=== PATIENT | female | born 1935 | race Caucasian/White ===

== ENCOUNTER 2016-07-19 06:08 | Inpatient (IN) | payer MEDICARE, OTHER ==
--- NOTE | ~2016-07-19 | CN ---
Consultation Report [place] [id number] [facility] [place]. [address] NAME: MYRIAM CARRASCO LEONARDO : 35 STATUS : ADM IN PAT#: [id number] AGE: 80 ADM/REG DATE : 07/19/16 MR#: [id number] REPORT SERV DATE: 07/26/16 DICTATED BY: YAEL ANGEL DATE: 07/26/16 REPORT STATUS : Draft TRANSCRIBED BY: MODL DATE: 07/26/16 CARDIOLOGY CONSULTATION DATE OF CONSULTATION: 07/19/2016 CHIEF COMPLAINT: Atrial fibrillation. HISTORY OF PRESENT ILLNESS: The patient is an 80-year-old female originally admitted from 06/27/2016 through 07/01/2016 for progressive weakness with a diagnosis of upper respiratory tract infection and acute kidney injury. Readmitted after reported apneic period and respiratory arrest. Found to be hypercapnic and respiratory failure. Intubated and admitted. The patient had negative troponins. She was subsequently diagnosed with a recurrent pneumonia. During the course of hospitalization, she developed atrial fibrillation with rapid ventricular rate. Consultation was requested for rate management. The patient is currently intubated, mechanically ventilated, and chemically sedated. Medical history is obtained from the medical records. PAST MEDICAL HISTORY: 1. Coronary artery disease - remote coronary artery bypass grafting. a. Coronary artery bypass grafting, 05/15/2009 with 5-vessel CABG: OTERO-LAD, SVG-diagonal, SVG-OM, sequential SVG to PDA and PLV. b. Catheterization, 12/18/2011 with occlusion of the saphenous vein graft to PDA. 2. COPD. 3. Hypertension. 4. Diabetes mellitus. 5. Obstructive sleep apnea. 6. History of deep venous thromboses. 7. Chronic kidney disease, stage 3. 8. Wmxm-kd-dngzeapf dementia. 9. Chronic pain syndrome. 10.Chronic anemia. 11.Hypothyroidism. 12.Recurrent urinary tract infections. 13.Peripheral neuropathy. SOCIAL HISTORY: Remote tobacco use. Reportedly stopped smoking approximately 10 years ago. No alcohol or illicit drug use. FAMILY HISTORY: Noncontributory. ALLERGIES: MORPHINE. Consultation Report [place] [id number] [facility] [place]. [address] NAME: MYRIAM CARRASCO LEONARDO : 35 STATUS : ADM IN PAT#: [id number] AGE: 80 ADM/REG DATE : 07/19/16 MR#: [id number] REPORT SERV DATE: 07/26/16 DICTATED BY: YAEL ANGEL DATE: 07/26/16 REPORT STATUS : Draft TRANSCRIBED BY: KENISHA DATE: 07/26/16 REVIEW OF SYSTEMS: Negative for all organ systems except per the history of present illness - per review of the medical record. PHYSICAL EXAMINATION: VITAL SIGNS: Pulse ranging from 96-106, blood pressure 125/53, weight 82 kg, saturating 94% on FiO2 of 45%. GENERAL: Elderly female intubated, mechanically ventilated, and chemically sedated. HEENT: Normal. NECK: Supple, no JVD or bruit, normal carotid upstroke bilaterally, no thyromegaly. LUNGS: Diffuse rhonchi in all lung melara. CARDIOLOGY: Irregularly irregular rhythm. ABDOMEN: Bowel sounds positive, soft, nontender, and nondistended. No masses or aortic bruits. No hepatosplenomegaly or hepatojugular reflux. EXTREMITIES: No edema. Normal pulses. No clubbing or cyanosis. SKIN: Warm and dry, no significant rash. NEUROLOGIC: Chemically sedated. LABORATORY DATA: EKG: Atrial fibrillation with rapid ventricular rate. IMPRESSION: 1. Acute onset of atrial fibrillation in the setting of pneumonia and respiratory failure. Rate management strategy at this time. The patient's anticoagulation is currently being held. At some point, she will need resumption of chronic anticoagulation for stroke prophylaxis. She is currently on intravenous amiodarone. We will use the same for rate management for now. 2. Respiratory failure - plan for anticoagulation if the patient is going to have prolonged intubation or following extubation. Thank you for the opportunity to see the patient in consultation. We will continue to follow the patient with you. CSL/KENISHA Candido Angel M.D. / [id number] CC: Victoriano York M.D.
--- NOTE | ~2016-07-19 | OP ---
Record Of Operation [facility] [address] [place]. [address] NAME: MYRIAM CARRASCO : 35 STATUS : ADM IN [facility]#: [id number] AGE: 80 ADM/REG DATE : 07/19/16 MR#: [id number] REPORT SERV DATE: 07/20/16 DICTATED BY: IBRAHIMA CARLISLE DATE: 07/20/16 REPORT STATUS : Draft TRANSCRIBED BY: MODL DATE: 07/20/16 DATE OF PROCEDURE: PREPROCEDURE DIAGNOSIS: Hypoxic respiratory failure and left lung atelectasis. POSTPROCEDURE DIAGNOSIS: Hypoxic respiratory failure and left lung atelectasis. DESCRIPTION OF PROCEDURE: An informed consent taken from the daughter by phone and with plans for elective intubation for airway protection and respiratory support so we can perform bronchoscopy. Consent was verbalized over the phone and signed by myself. Risks and benefits discussed. The patient was in MICU bed 5 during intubation procedure. The patient was taken off BiPAP and put on 100% Ambu bag and given 30 mg of etomidate IV for sedation. We bagged the patient, we got O2 saturation of 96%. Using a Mach 3 blade, placed a size 8 ET tube without difficulty. Got good mist with bagging and good color change with CO2 colorimetry. She has diminished breath sounds on the left which is expected given her left lung atelectasis. We will get a chest x-ray to confirm ET tube placement. No complications. CEP/KENISHA Ibrahima Carlisle DO / [id number] CC: Victoriano York M.D.
--- NOTE | ~2016-07-19 | OP ---
Record Of Operation [facility] [address] [place]. [address] NAME: MYRIAM CARRASCO : 35 STATUS : ADM IN PAT#: [id number] AGE: 80 ADM/REG DATE : 07/19/16 MR#: [id number] REPORT SERV DATE: 07/20/16 DICTATED BY: IBRAHIMA CARLISLE DATE: 07/20/16 REPORT STATUS : Draft TRANSCRIBED BY: MODL DATE: 07/20/16 DATE OF PROCEDURE: 07/20/2016 PREPROCEDURE DIAGNOSIS: Respiratory failure and left total lung atelectasis. POSTPROCEDURE DIAGNOSES: Respiratory failure and left total lung atelectasis. DESCRIPTION: Informed consent obtained from family verbally over the phone for elective intubation and bronchoscopy. Risks and benefits discussed, and all questions answered. The patient was in MICU bed 5 for procedure while the patient was intubated on mechanical ventilation getting IV propofol. Fiberoptic scope was inserted after timeout performed for procedure. Scope was inserted through the endotracheal tube while the patient was on mechanical ventilation with a tidal volume of 500, and FiO2 initially 50% which was later increased to 100% FiO2. High-pressure alarm occurred periodically throughout the procedure which caused me to remove the bronchoscope intermittently. I then inserted the scope through the endotracheal tube and was able to see the anthony. Immediately saw copious, thick, purulent secretions in the left mainstem bronchus completely obstructing the airway. The right mainstem was completely open. The trap was in place and suctioned back secretions from the left airway. We injected normal saline to be able to loosen up the secretions. We were able to successfully clear out all segments of the left lung to open them up. The left upper lobe did have some areas of hemorrhagic appearance, and we did inject some epinephrine into this area. There was not a lot of active bleeding, but due to the hemorrhagic nature, we did inject some epinephrine. We suctioned back all we could and sent the trap for culture for routine bacteria, as well as fungus and cytology. No significant blood loss occurred during the procedure. The right lung also was inspected and was free of any endobronchial lesion, mass, or irregularities and very minimal secretions on that side. All segments were open. There were no endobronchial lesions in the left lung either, but the left lung did show a lot of areas of inflammation and mucosal hyperemia. The scope was removed. The patient tolerated the procedure well. CEP/MODL Ibrahima Carlisle DO / [id number] CC: Victoriano York M.D.
--- NOTE | ~2016-07-19 | HP ---
History And Physical [place] [id number] [facility] [place]. [address] NAME: MYRIAM CARRASCO : 35 STATUS : ADM IN [facility]#: [id number] AGE: 80 ADM/REG DATE : 07/19/16 MR#: [id number] REPORT SERV DATE: 07/19/16 DICTATED BY: VICTORIANO YORK DATE: 07/19/16 REPORT STATUS : Draft TRANSCRIBED BY: MODL DATE: 07/19/16 DATE OF ADMISSION: 07/19/2016 CHIEF COMPLAINT: This is an 80-year-old female who presents from [facility] after a cardiorespiratory arrest. HISTORY OF PRESENT ILLNESS: During the night, she was found to be apneic and a Code was called and after CPR was done, she awakened and on arrival to the emergency department, was found to have respiratory acidosis which has continued even into the intensive care unit in spite of BiPAP. REVIEW OF SYSTEMS: The family was relating that she may have missed diuretics after being sent from [facility] to the alf, but they were on her orders after checking, in spite of this the family noticed that she had peripheral edema increasing for the past week at the facility. She has also had increasing weakness which had only temporarily improved after her first [facility] admission for several days up until 06/30/2016 when she was admitted to [facility]. She had no nausea, vomiting, diarrhea, cough, or fever. Just increasing weakness, occasional coughing in the last day or two before admission. Had some green phlegm with productive cough. She had been started on Zithromax and Omnicef at the alf and now arrives with possible aspiration pneumonia, nosocomial and likely aspiration related. PAST MEDICAL HISTORY: Includes ongoing nygx-fg-azrinvaj dementia, decreasing physical endurance, increasing weakness, COPD with a history of smoking until about 10 years ago, longstanding hypertension, coronary artery disease, chronic pain syndrome, gastroesophageal reflux disease, hypercholesterolemia, possible congestive heart failure, hypothyroidism. CURRENT MEDICATIONS: Include albuterol q.4 hours metered dose inhaler, alprazolam 0.5 mg one or two at bedtime and 0.5 mg daily p.r.n., aspirin 81 mg daily, Zithromax 250 mg daily, Symbicort 160/4.5 b.i.d. two puffs, Bumex 1 mg daily, Calmoseptine ointment p.r.n., Omnicef 300 mg b.i.d., vitamin D3 2000 units daily, vitamin B12 1 mg IM monthly, Flexeril 5 mg at bedtime, Colace 100 mg daily, Nexium 20 mg daily, Neurontin 300 mg b.i.d., Mucinex 1200 mg daily p.r.n., levothyroxine 25 mcg daily, Lidoderm topical patch #3 daily, Toprol-XL 50 mg daily, Nystatin powder p.r.n., Percocet 5/325 t.i.d., MiraLAX powder 1 daily, Phenergan 12.5 mg b.i.d. p.r.n., Seroquel 50 mg daily and 100 mg each afternoon, Zoloft 100 mg daily, Alger nasal spray two or three puffs p.r.n. ALLERGIES: INCLUDE DEPAKOTE, DOXYCYCLINE, CIPRO, OLANZAPINE, AND A SEVERE REACTION TO MORPHINE. CODE STATUS: Full code and this was reiterated with the family who said including the possibility of intubation and ventilator support that would be in line with her wishes at this point in time. FAMILY HISTORY: Noncontributory. History And Physical [address] [address] NAME: MYRIAM CARRASCO : 35 STATUS : ADM IN [facility]#: [id number] AGE: 80 ADM/REG DATE : 07/19/16 MR#: [id number] REPORT SERV DATE: 07/19/16 DICTATED BY: VICTORIANO YORK DATE: 07/19/16 REPORT STATUS : Draft TRANSCRIBED BY: KENISHA DATE: 07/19/16 SOCIAL HISTORY: She is , with grown children. Multiple grandchildren who are involved in her care and support. Quit smoking 10 years ago. No alcohol or tobacco issues currently. PHYSICAL EXAMINATION: VITAL SIGNS: BP 125/46, pulse 120 on admission, currently in the 80s, respirations 20, afebrile. GENERAL: She is drowsy, but arouses and answers yes and no questions fairly clearly. SKIN: Pale, warm and dry. HEAD/NECK: Cranial nerves grossly intact. BiPAP mask in place. Mucous membranes slightly dry. Neck supple. No mass. No JVD. CHEST: With fairly good breath sounds except diminished in the bases more so on the right. No active wheezing. HEART: Regular rate and rhythm. Weak pulses. No murmur. ABDOMEN: Obese, supple, nontender, nondistended. No palpable mass. AND RECTAL: Deferred. EXTREMITIES: Good passive range of motion in all extremities. 1+ ankle edema. NEUROLOGIC: Grossly intact to sensory and motor with no tremors or pathological reflexes noted. No palpable cervical or axillary lymph nodes. LABORATORY: WBC 9.1, H and H 9.5 and 32.5, platelets 173. Sodium 131, potassium 4.0, BUN 47, creatinine 1.71, glucose 190. Urine with 25 wbc's. INR 1.2. Calcium 8.4. Liver enzymes in normal range. Lactate 1.5. EKG shows normal sinus rhythm in the 90s with no acute changes. Chest x-ray shows chronic changes. Later in the emergency department, a rhythm strip did show atrial fibrillation at some point in time. IMPRESSION: 1. Respiratory arrest, cannot rule out cardiac arrest but no evidence of myocardial infarction at this time. 2. Recurrent pneumonia, likely aspiration related and nosocomial. Failed outpatient treatment. 3. Chronic obstructive pulmonary disease with history of tobacco. 4. Ongoing respiratory acidosis, possibly related to the pain that she complains of in her rib cage preventing her from taking deep breaths, possibly related to medications on board or her dementia. Continue BiPAP for now and consider intubation and ventilator support if needed. 5. Urinary tract infection. 6. Hypertension. 7. Coronary artery disease. 8. Hypothyroidism. PLAN: We will switch to vancomycin and cefepime for maximum coverage, consult box maker paperboard. Continue full code. Electrolyte protocol. Pain relief with low-dose IV Dilaudid if needed. We will change the location of her Lidoderm patch to her rib cage, specifically where she is having pain. We will use SCDs for DVT prophylaxis instead of anticoagulation due to potential bruising and pulmonary contusion. We will get a speech therapy consultation for evaluation of probable aspiration. Continue most of her home medications except with History And Physical [address] [address] NAME: MYRIAM CARRASCO LEONARDO : 35 STATUS : ADM IN [facility]#: [id number] AGE: 80 ADM/REG DATE : 07/19/16 MR#: [id number] REPORT SERV DATE: 07/19/16 DICTATED BY: VICTORIANO YORK DATE: 07/19/16 REPORT STATUS : Draft TRANSCRIBED BY: MODL DATE: 07/19/16 reduction in dose of benzodiazepine and antipsychotic and change the pain pill to p.r.n. only. Follow up on blood and sputum cultures and plan to return to [facility] for further therapy when stabilized. BP/KENISHA Victoriano York M.D. / [id number] CC: Victoriano York M.D.
--- NOTE | ~2016-07-19 | CN ---
Consultation Report [facility] [address] [facility] [place]. [address] NAME: MYRIAM CARRASCO : 35 STATUS : ADM IN [facility]#: [id number] AGE: 80 ADM/REG DATE : 07/19/16 MR#: [id number] REPORT SERV DATE: 07/19/16 DICTATED BY: BITA KELLY DATE: 07/19/16 REPORT STATUS : Draft TRANSCRIBED BY: MODL DATE: 07/19/16 CONSULT DATE OF CONSULTATION: REASON FOR CONSULT: Acute hypercapnic respiratory failure. CHIEF COMPLAINT: The patient states that she is having chest pain. HISTORY OF PRESENT ILLNESS: Ms. Carrasco is an 80-year-old female, who was brought to the hospital after a supposed arrest and was found to be in hypercapnic respiratory failure. She was on BiPAP therapy, but came off by the time I saw her in the unit. She is currently admitted by Dr. Toyin bello. Emergency room called and gave me the history. Attempted to obtain a history from the patient, the patient's main complaint is chest pain. She has heavy atherosclerosis of her aorta. She states that this was a sharp chest pain in her chest and radiating to her back. We obtained an EKG, which did not find any symptoms of ischemia. Due to the concern of an aortic dissection and/or aneurysm, we obtained a stat CT scan of the chest. We did not add contrast due to the fear of worsening kidney dysfunction with her known chronic kidney disease, as the pain was reproducible on examination; however, not ruled out that there may be an aneurysm. Otherwise, the patient does not have any complaints of shortness of breath; however, she has increased work of breathing. PAST MEDICAL HISTORY: Dementia, coronary artery disease status post bypass, aortic atherosclerosis, hypertension, osteoarthritis, reflux, diabetes, hypothyroidism, hyperlipidemia, peripheral neuropathy, COPD with sleep apnea, anemia, chronic pain, history of DVTs. MEDICATIONS: Please see the MAR. SOCIAL HISTORY: The patient currently lives at a long-term. Family is not currently at the bed side. She has a history of smoking however. FAMILY HISTORY: Per record, history of diabetes and hypertension. REVIEW OF SYSTEMS: Unable to obtain adequate review of systems than what was discussed, as her main complaint was just chest pain and murillo negative otherwise. PHYSICAL EXAMINATION: VITAL SIGNS: Afebrile, heart rate in the 80s, respiratory rate 20, on nasal cannula with an oxygen saturation of around 100%. Blood pressure currently around 105 systolic. GENERAL: The patient is in mild respiratory distress. She is talking, she is alert and oriented x2. HEENT: No JVD. Consultation Report [place] [id number] [place]. [address] NAME: MYRIAM CARRASCO : 35 STATUS : ADM IN PAT#: [id number] AGE: 80 ADM/REG DATE : 07/19/16 MR#: [id number] REPORT SERV DATE: 07/19/16 DICTATED BY: BITA KELLY DATE: 07/19/16 REPORT STATUS : Draft TRANSCRIBED BY: MODL DATE: 07/19/16 NECK: Supple. PULMONARY: Decreased breath sounds bilaterally, poor inspiratory effort. Anteriorly, there are decreased breath sounds on the left lateral wall. CARDIAC: Mild systolic murmur, regular rate however. ABDOMEN: Soft, nontender, nondistended. Positive bowel sounds. CHEST: The patient's chest pain is reproducible except the posterior chest pain is not reproducible. EXTREMITIES: No lower extremity edema. IMAGING: CT scan of the abdomen shows extensive atherosclerosis with mild edema around the pancreatic head. CT scan of the chest shows completely atelectatic left lung and infiltrates bilaterally with pleural effusions. Chest x-ray: Bilateral infiltrates. LABORATORY EXAMINATION: No white blood cell count. Hemoglobin 9.5, creatinine 1.71, BUN 47. BNP 424. ASSESSMENT: 1. Acute hypoxic respiratory failure. At this moment in time, this is hypoxic and hypercapnic. I have instructed respiratory to continue with the Dulera, albuterol nebulizer, chest PT, BiPAP therapy with Precedex as needed for agitation, chest x-ray in the morning, as if this patient does not reopen her left lung, she may be a candidate for bronchoscopy. Check ABG as needed. However, her mental status has significantly improved according to the staff. 2. Chest pain: Most likely secondary to chest compressions. EKG shows no signs of ischemia. Troponin is negative x2. 3. Chronic kidney disease. 4. Chronic anemia. 5. Pancreatic edema. At this moment in time, we will check a lipase. Thank you very much for this consultation. We will continue to follow along with you in the intensive care unit. CRITICAL CARE TIME: In addition to any procedures that may have occurred, critical care time is 33 minutes. HFQ/KENISHA Bita Kelly MD / [id number] Consultation Report [address] [place]. [address] NAME: LUNAMYRIAM PATTERSON : 35 STATUS : ADM IN PAT#: [id number] AGE: 80 ADM/REG DATE : 07/19/16 MR#: [id number] REPORT SERV DATE: 07/19/16 DICTATED BY: BITA KELLY DATE: 07/19/16 REPORT STATUS : Draft TRANSCRIBED BY: KENISHA DATE: 07/19/16 CC: Victoriano York M.D.
[2016-07-19 05:48] LABS: BASOPHILS 0.1 %; BASOPHILS ABSOLUTE 0.01 10/3/uL (0.0-0.16); EOSINOPHILS ABSOLUTE 0.18 10/3/uL (0.0-0.53); HEMATOCRIT 32.5 % (36.0-48.0); HEMOGLOBIN 9.5 g/dL (12.0-16.0); IMMATURE GRANULOCYTES 0.8 %; IMMATURE GRANULOCYTES ABSOLUTE 0.07 10/3/uL (0.0-0.11); LYMPHOCYTES 14.6 %; LYMPHOCYTES ABSOLUTE 1.32 10/3/uL (0.67-4.30); MEAN CORPUSCULAR HEMOGLOB 26.3 pg (26.0-34.0); MEAN PLATELET VOLUME 10.2 fL (9.2-13.0); MONOCYTES 7.6 %; MONOCYTES ABSOLUTE 0.69 10/3/uL (0.21-1.20); NEUTROPHILS 74.9 %; RBC DISTRIBUTION WIDTH 16.7 % (12.0-16.0); RED CELL COUNT 3.61 10/6/uL (4.0-5.6)
[2016-07-19 05:52] LABS: ER CBC TAT 0 Hrs 09 Mins; MANUAL DIFF NO %; MEAN CORPUS HGB CONC 29.2 g/dL (32.0-36.0); PLATELET COUNT 173 10/3/uL (150-400); WHITE BLOOD CELLS 9.1 10/3/uL (4.5-10.5)
[2016-07-19 05:58] LABS: INTERNATIONAL NORMAL RATI 1.2 UNITS (-); PARTIAL THROMBO TIME 31.8 SEC (22.5-37.2); PROTIME (NOT ORD) 15.4 SEC (12.0-14.5)
[2016-07-19 06:07] LABS: LACTATE 1.5 MMOL/L (0.3-2.4)
[~2016-07-19 06:08] MED LIST: ASAB PO; ASAEC PO; B121000P IM; BUM1 PO; CALMOSEPTINE O2.5 OZ TOP; CLARIT10 PO; CRESTOR10 PO; CRESTOR20 MG PO; CYANO1000T PO; DOK100 MG PO; DSS PO; ENDOCET1 TA1 PO; FISH OIL300 MG PO; FLAXSEED OIL1000 MG PO; FLEXERIL5 MG PO; GLUCPH PO; HALF81 PO; HEMATINIC PL PO; L40 PO; LEVOTHROID25 MCG PO; LEVOTHYROXIN25 MCG PO; LIDODERM T; LIDODERM TOP; LOFIBRA160 MG PO; LOP25 PO; METHOC750B PO; MIRALAXPKT PO; MUCINEX1200 MG PO; MULTIPLE VIT PO; NEUR100 PO; NEUR300 PO; NEXIUM20 M1 PO; NYSTOP100000 MG TOP; OCEAN NAS; OMNICEF300 PO; PCET PO; PERCOCET1 TA4 PO; PR12.5 PO; PR25 PO; PRIN2.5 PO; PROAIR HFA INH; REG5 PO; SEROQUEL1C PO; SEROQUEL50 MG PO; SUCR PO; SYMBICORT 160/41 INH INH; SYN.025B PO; TOPXL50 PO; VITAMIN D31000 UNIT PO; VITC500 PO; WOUND TOP; X5 PO; Z-PAK PO; ZANTAC300 MG PO; ZOL100 PO
[2016-07-19 06:10] LABS: A/G RATIO 0.6 (0.7-1.9); ACETAMINOPHEN LEVEL (TYLENOL) 4.5 MCG/ML (10.0-20.0); ALBUMIN 2.8 G/DL (3.5-5.0); ALCOHOL < 10 MG/DL (0); ALKALINE PHOSPHATASE 96 U/L (45-117); BUN (BLOOD UREA NITROGEN) 47 MG/DL (6-23); CALCIUM, SERUM 8.4 MG/DL (8.5-10.4); CHLORIDE, SERUM 98 MMOL/L (96-112); CO2 (CARBON DIOXIDE) 31 MMOL/L (24-34); CREATININE 1.71 MG/DL (0.55-1.02); GFR AFRICAN AMERICAN 32 ML/MIN (>=60); GFR NON AFRICAN AMERICAN 28 ML/MIN (>=60); GLOBULIN 4.4 G/DL (2.5-4.1); GLUCOSE, SERUM 190 MG/DL (60-99); POTASSIUM, SERUM 4.9 MMOL/L (3.5-5.3); SALICYLATE < 1.7 MG/DL (-); SGOT(AST) 18 U/L (5-40); SGPT(ALT) 20 U/L (5-65); SODIUM, SERUM 137 MMOL/L (135-148); TOTAL BILIRUBIN 0.5 MG/DL (0-1.2); TOTAL PROTEIN 7.2 G/DL (6.0-8.5); TROPONIN I <0.02 NG/ML (<0.05)
[2016-07-19 06:25] LABS: ASCORBIC ACID (UR NOT ORDER) NEG (NEG); BILIRUBIN, URINE NEGATIVE (NEG); ER URINALYSIS TAT 0 Hrs 00 Mins; KETONE, URINE NEGATIVE (NEG); LEUKOCYTE ESTERASE(NOT OR MOD (NEG); NITRITE (URINE) NEG (NEG); WBC (NOT ORDERED) (RFLEX) 25 (0-5)
[2016-07-19 07:20] LABS: AMPHETAMINES (NOT ORD) NEG (NEG); BARBITURATES (NOT ORDERED NEG (NEG); BENZODIAZEPINES (NOT ORD) NEG (NEG); CANNABINOIDS (THC) POS (NEG); COCAINE (NOT ORDERED) NEG (NEG); OPIATES POS (NEG); PHENCYCLIDINE(PCP) NEG (NEG); TRICYCLICS NEG (NEG)
[2016-07-19 10:07] LABS: BE (BASE EXCESS) 4.6 MEQ/L (0 +/- 2.5); BIPAP 18/6 cm.H2O; CARBOXYHEMOGLOBIN 0.9 % (0-3); HCO3 (ACTUAL BICARBONATE) 32.6 MEQ/L (23-27); HEMOBLOGIN CONTENT 9.5 G/DL (12-16); INSTRUMENT SERIAL # 8083; METHEMOGLOBIN 0.1 % (0-3); O2 CONTENT 12.7 VOL% (18-24); OPERATOR ID 14947; PCO2 (CO2 TENSION) 71 MMHG (35-45); PO2 (O2 TENSION) 79 MMHG (79-93); SAMPLE Arterial; pH 7.28 (7.37-7.43)
[2016-07-20 06:13] LABS: BUN (BLOOD UREA NITROGEN) 41 MG/DL (6-23); CALCIUM, SERUM 8.6 MG/DL (8.5-10.4); CHLORIDE, SERUM 102 MMOL/L (96-112); CO2 (CARBON DIOXIDE) 29 MMOL/L (24-34); CREATININE 1.36 MG/DL (0.55-1.02); GFR AFRICAN AMERICAN 42 ML/MIN (>=60); GFR NON AFRICAN AMERICAN 37 ML/MIN (>=60); GLUCOSE, SERUM 124 MG/DL (60-99); POTASSIUM, SERUM 4.6 MMOL/L (3.5-5.3); SODIUM, SERUM 141 MMOL/L (135-148)
[2016-07-20 09:18] LABS: BASOPHILS 0.2 %; BASOPHILS ABSOLUTE 0.01 10/3/uL (0.0-0.16); EOSINOPHILS 0.6 %; EOSINOPHILS ABSOLUTE 0.03 10/3/uL (0.0-0.53); IMMATURE GRANULOCYTES 0.6 %; IMMATURE GRANULOCYTES ABSOLUTE 0.03 10/3/uL (0.0-0.11); LYMPHOCYTES ABSOLUTE 0.48 10/3/uL (0.67-4.30); MANUAL DIFF NO %; MEAN CORPUS HGB CONC 30.8 g/dL (32.0-36.0); MEAN CORPUSCULAR HEMOGLOB 26.8 pg (26.0-34.0); MEAN CORPUSCULAR VOLUME 87.2 fL (80-100); MONOCYTES 10.5 %; MONOCYTES ABSOLUTE 0.56 10/3/uL (0.21-1.20); NEUTROPHILS 79.1 %; NEUTROPHILS ABSOLUTE 4.22 10/3/uL (2.02-8.40); PLATELET COUNT 111 10/3/uL (150-400); RBC DISTRIBUTION WIDTH 16.8 % (12.0-16.0); RED CELL COUNT 2.98 10/6/uL (4.0-5.6); WHITE BLOOD CELLS 5.3 10/3/uL (4.5-10.5)
[2016-07-20 12:45] LABS: ALLENS TEST Pos; BE (BASE EXCESS) 5.4 MEQ/L (0 +/- 2.5); CARBOXYHEMOGLOBIN 0.9 % (0-3); HCO3 (ACTUAL BICARBONATE) 31.9 MEQ/L (23-27); INSTRUMENT SERIAL # 8083; METHEMOGLOBIN 0.3 % (0-3); MODE A/C; O2 CONTENT 13.1 VOL% (18-24); PCO2 (CO2 TENSION) 59 MMHG (35-45); PO2 (O2 TENSION) 260 MMHG (79-93); SAMPLE Arterial; TIDAL VOLUME 450 ML; pH 7.35 (7.37-7.43)
[2016-07-20 17:46] LABS: BD FL LYMPH (NOT ORD) 1 %; BD FL SOURCE (NOT ORD) BAL; BF BASO (NOT OF) 0 %; BF LARGE MONONUCLEAR 0 %; BF TOTAL CELL CT (NOT ORD 4709 /MM3; BODY FLUID EOS (NOT ORD) 0 %; BODY FLUID RBC (NOT ORD) 79000 /MM3; BODY FLUID SEG (NOT ORD) 99 %
[2016-07-21 05:12] LABS: BASOPHILS 0.2 %; BASOPHILS ABSOLUTE 0.01 10/3/uL (0.0-0.16); EOSINOPHILS 1.1 %; EOSINOPHILS ABSOLUTE 0.05 10/3/uL (0.0-0.53); HEMOGLOBIN 8.7 g/dL (12.0-16.0); IMMATURE GRANULOCYTES 0.4 %; IMMATURE GRANULOCYTES ABSOLUTE 0.02 10/3/uL (0.0-0.11); LYMPHOCYTES 18.9 %; LYMPHOCYTES ABSOLUTE 0.89 10/3/uL (0.67-4.30); MEAN CORPUS HGB CONC 30.3 g/dL (32.0-36.0); MEAN CORPUSCULAR HEMOGLOB 26.7 pg (26.0-34.0); MEAN PLATELET VOLUME 11.1 fL (9.2-13.0); MONOCYTES 8.3 %; MONOCYTES ABSOLUTE 0.39 10/3/uL (0.21-1.20); NEUTROPHILS 71.1 %; NEUTROPHILS ABSOLUTE 3.36 10/3/uL (2.02-8.40); PLATELET COUNT 111 10/3/uL (150-400); RBC DISTRIBUTION WIDTH 16.6 % (12.0-16.0); RED CELL COUNT 3.26 10/6/uL (4.0-5.6); WHITE BLOOD CELLS 4.7 10/3/uL (4.5-10.5)
[2016-07-21 05:15] LABS: HEMATOCRIT 28.7 % (36.0-48.0); MANUAL DIFF NO %
[2016-07-21 05:28] LABS: BUN (BLOOD UREA NITROGEN) 38 MG/DL (6-23); CALCIUM, SERUM 8.5 MG/DL (8.5-10.4); CHLORIDE, SERUM 102 MMOL/L (96-112); CO2 (CARBON DIOXIDE) 29 MMOL/L (24-34); CREATININE 1.37 MG/DL (0.55-1.02); GFR AFRICAN AMERICAN 42 ML/MIN (>=60); GFR NON AFRICAN AMERICAN 36 ML/MIN (>=60); POTASSIUM, SERUM 4.5 MMOL/L (3.5-5.3); SODIUM, SERUM 141 MMOL/L (135-148)
[2016-07-21 05:39] LABS: GLUCOSE, SERUM 154 MG/DL (60-99); PHOSPHORUS, SERUM 2.4 MG/DL (2.5-4.5); ULTRASENSITIVE TSH 0.738 MCIU/ML (0.358-3.740)
[2016-07-22 05:19] LABS: BASOPHILS 0.4 %; BASOPHILS ABSOLUTE 0.04 10/3/uL (0.0-0.16); EOSINOPHILS 4.8 %; EOSINOPHILS ABSOLUTE 0.49 10/3/uL (0.0-0.53); HEMOGLOBIN 9.9 g/dL (12.0-16.0); IMMATURE GRANULOCYTES 1.3 %; IMMATURE GRANULOCYTES ABSOLUTE 0.13 10/3/uL (0.0-0.11); LYMPHOCYTES 22.4 %; LYMPHOCYTES ABSOLUTE 2.31 10/3/uL (0.67-4.30); MEAN CORPUS HGB CONC 30.9 g/dL (32.0-36.0); MEAN CORPUSCULAR HEMOGLOB 26.3 pg (26.0-34.0); MEAN PLATELET VOLUME 10.4 fL (9.2-13.0); MONOCYTES 8.4 %; MONOCYTES ABSOLUTE 0.87 10/3/uL (0.21-1.20); NEUTROPHILS 62.7 %; NEUTROPHILS ABSOLUTE 6.46 10/3/uL (2.02-8.40); RBC DISTRIBUTION WIDTH 17.1 % (12.0-16.0); RED CELL COUNT 3.77 10/6/uL (4.0-5.6)
[2016-07-22 05:21] LABS: MANUAL DIFF NO %; MEAN CORPUSCULAR VOLUME 84.9 fL (80-100); PLATELET COUNT 173 10/3/uL (150-400); WHITE BLOOD CELLS 10.3 10/3/uL (4.5-10.5)
[2016-07-22 05:27] LABS: INTERNATIONAL NORMAL RATI 1.3 UNITS (-); PARTIAL THROMBO TIME 35.5 SEC (22.5-37.2); PROTIME (NOT ORD) 16.2 SEC (12.0-14.5)
[2016-07-22 05:32] LABS: CHLORIDE, SERUM 100 MMOL/L (96-112); CO2 (CARBON DIOXIDE) 30 MMOL/L (24-34); CREATININE 1.27 MG/DL (0.55-1.02); GFR AFRICAN AMERICAN 46 ML/MIN (>=60); GFR NON AFRICAN AMERICAN 40 ML/MIN (>=60); GLUCOSE, SERUM 161 MG/DL (60-99); POTASSIUM, SERUM 3.6 MMOL/L (3.5-5.3); SODIUM, SERUM 139 MMOL/L (135-148)
[2016-07-22 05:39] LABS: BUN (BLOOD UREA NITROGEN) 29 MG/DL (6-23)
[2016-07-22 06:20] LABS: ANISOCYTOSIS 1+ (5-10/OIF) (0-5/OIF); PLATELET ESTIMATE ADQ (ADEQUATE); POLYCHROMASIA 1+ (2-5/OIF) (0-1/OIF)
[2016-07-22 19:13] LABS: POTASSIUM, SERUM 4.3 MMOL/L (3.5-5.3)
[2016-07-23 04:10] LABS: BASOPHILS 0.2 %; BASOPHILS ABSOLUTE 0.02 10/3/uL (0.0-0.16); EOSINOPHILS 0 %; HEMATOCRIT 32.7 % (36.0-48.0); HEMOGLOBIN 9.9 g/dL (12.0-16.0); IMMATURE GRANULOCYTES 0.9 %; IMMATURE GRANULOCYTES ABSOLUTE 0.11 10/3/uL (0.0-0.11); LYMPHOCYTES 4.6 %; LYMPHOCYTES ABSOLUTE 0.57 10/3/uL (0.67-4.30); MEAN CORPUS HGB CONC 30.3 g/dL (32.0-36.0); MEAN CORPUSCULAR HEMOGLOB 25.6 pg (26.0-34.0); MEAN CORPUSCULAR VOLUME 84.7 fL (80-100); MEAN PLATELET VOLUME 10.3 fL (9.2-13.0); MONOCYTES ABSOLUTE 0.12 10/3/uL (0.21-1.20); NEUTROPHILS 93.3 %; NEUTROPHILS ABSOLUTE 11.54 10/3/uL (2.02-8.40); PLATELET COUNT 182 10/3/uL (150-400); RBC DISTRIBUTION WIDTH 16.8 % (12.0-16.0); RED CELL COUNT 3.86 10/6/uL (4.0-5.6); WHITE BLOOD CELLS 12.4 10/3/uL (4.5-10.5)
[2016-07-23 04:16] LABS: MANUAL DIFF NO %
[2016-07-23 04:22] LABS: CALCIUM, SERUM 8.2 MG/DL (8.5-10.4); CHLORIDE, SERUM 100 MMOL/L (96-112); CO2 (CARBON DIOXIDE) 30 MMOL/L (24-34); CREATININE 1.24 MG/DL (0.55-1.02); GFR AFRICAN AMERICAN 48 ML/MIN (>=60); GFR NON AFRICAN AMERICAN 41 ML/MIN (>=60); PHOSPHORUS, SERUM 2.9 MG/DL (2.5-4.5); POTASSIUM, SERUM 3.9 MMOL/L (3.5-5.3); SODIUM, SERUM 139 MMOL/L (135-148)
[2016-07-23 04:23] LABS: BUN (BLOOD UREA NITROGEN) 25 MG/DL (6-23); GLUCOSE, SERUM 213 MG/DL (60-99)
[2016-07-24 04:07] LABS: BASOPHILS 0.1 %; BASOPHILS ABSOLUTE 0.01 10/3/uL (0.0-0.16); EOSINOPHILS 0.5 %; EOSINOPHILS ABSOLUTE 0.06 10/3/uL (0.0-0.53); HEMATOCRIT 32.1 % (36.0-48.0); HEMOGLOBIN 9.7 g/dL (12.0-16.0); IMMATURE GRANULOCYTES 0.7 %; IMMATURE GRANULOCYTES ABSOLUTE 0.08 10/3/uL (0.0-0.11); LYMPHOCYTES 13.9 %; LYMPHOCYTES ABSOLUTE 1.68 10/3/uL (0.67-4.30); MEAN CORPUS HGB CONC 30.2 g/dL (32.0-36.0); MEAN CORPUSCULAR HEMOGLOB 25.7 pg (26.0-34.0); MEAN CORPUSCULAR VOLUME 85.1 fL (80-100); MEAN PLATELET VOLUME 10.6 fL (9.2-13.0); MONOCYTES 7.2 %; MONOCYTES ABSOLUTE 0.87 10/3/uL (0.21-1.20); NEUTROPHILS 77.6 %; NEUTROPHILS ABSOLUTE 9.39 10/3/uL (2.02-8.40); PLATELET COUNT 193 10/3/uL (150-400); RBC DISTRIBUTION WIDTH 16.7 % (12.0-16.0); RED CELL COUNT 3.77 10/6/uL (4.0-5.6); WHITE BLOOD CELLS 12.1 10/3/uL (4.5-10.5)
[2016-07-24 04:10] LABS: MANUAL DIFF NO %
[2016-07-24 04:21] LABS: BUN (BLOOD UREA NITROGEN) 26 MG/DL (6-23); CALCIUM, SERUM 8.2 MG/DL (8.5-10.4); CHLORIDE, SERUM 99 MMOL/L (96-112); CO2 (CARBON DIOXIDE) 31 MMOL/L (24-34); CREATININE 1.25 MG/DL (0.55-1.02); GFR AFRICAN AMERICAN 47 ML/MIN (>=60); GFR NON AFRICAN AMERICAN 41 ML/MIN (>=60); PHOSPHORUS, SERUM 2.3 MG/DL (2.5-4.5); POTASSIUM, SERUM 3.4 MMOL/L (3.5-5.3); SODIUM, SERUM 141 MMOL/L (135-148)
[2016-07-24 04:25] LABS: GLUCOSE, SERUM 151 MG/DL (60-99)
[2016-07-25 07:35] LABS: BUN (BLOOD UREA NITROGEN) 21 MG/DL (6-23); CALCIUM, SERUM 8.1 MG/DL (8.5-10.4); CHLORIDE, SERUM 96 MMOL/L (96-112); CO2 (CARBON DIOXIDE) 30 MMOL/L (24-34); CREATININE 1.31 MG/DL (0.55-1.02); GFR AFRICAN AMERICAN 44 ML/MIN (>=60); GFR NON AFRICAN AMERICAN 38 ML/MIN (>=60); GLUCOSE, SERUM 185 MG/DL (60-99); POTASSIUM, SERUM 3.4 MMOL/L (3.5-5.3); SODIUM, SERUM 138 MMOL/L (135-148)
[2016-07-25 07:37] LABS: BASOPHILS 0.2 %; BASOPHILS ABSOLUTE 0.02 10/3/uL (0.0-0.16); EOSINOPHILS 5.6 %; EOSINOPHILS ABSOLUTE 0.66 10/3/uL (0.0-0.53); HEMATOCRIT 29.9 % (36.0-48.0); HEMOGLOBIN 9.1 g/dL (12.0-16.0); IMMATURE GRANULOCYTES 0.5 %; IMMATURE GRANULOCYTES ABSOLUTE 0.06 10/3/uL (0.0-0.11); LYMPHOCYTES 13.5 %; LYMPHOCYTES ABSOLUTE 1.59 10/3/uL (0.67-4.30); MEAN CORPUS HGB CONC 30.4 g/dL (32.0-36.0); MEAN CORPUSCULAR HEMOGLOB 25.7 pg (26.0-34.0); MEAN CORPUSCULAR VOLUME 84.5 fL (80-100); MONOCYTES 4.2 %; NEUTROPHILS ABSOLUTE 8.96 10/3/uL (2.02-8.40); PLATELET COUNT 186 10/3/uL (150-400); RBC DISTRIBUTION WIDTH 16.9 % (12.0-16.0); RED CELL COUNT 3.54 10/6/uL (4.0-5.6); WHITE BLOOD CELLS 11.8 10/3/uL (4.5-10.5)
[2016-07-25 07:40] LABS: MANUAL DIFF NO %
[2016-07-26 04:40] LABS: BASOPHILS 0.2 %; BASOPHILS ABSOLUTE 0.02 10/3/uL (0.0-0.16); EOSINOPHILS 3.4 %; HEMATOCRIT 28.7 % (36.0-48.0); HEMOGLOBIN 8.5 g/dL (12.0-16.0); IMMATURE GRANULOCYTES 0.6 %; IMMATURE GRANULOCYTES ABSOLUTE 0.07 10/3/uL (0.0-0.11); LYMPHOCYTES 17.3 %; LYMPHOCYTES ABSOLUTE 2.05 10/3/uL (0.67-4.30); MEAN CORPUS HGB CONC 29.6 g/dL (32.0-36.0); MEAN CORPUSCULAR HEMOGLOB 25.8 pg (26.0-34.0); MONOCYTES 4.8 %; MONOCYTES ABSOLUTE 0.57 10/3/uL (0.21-1.20); NEUTROPHILS 73.7 %; NEUTROPHILS ABSOLUTE 8.74 10/3/uL (2.02-8.40); PLATELET COUNT 134 10/3/uL (150-400); RBC DISTRIBUTION WIDTH 16.8 % (12.0-16.0); RED CELL COUNT 3.29 10/6/uL (4.0-5.6); WHITE BLOOD CELLS 11.9 10/3/uL (4.5-10.5)
[2016-07-26 04:43] LABS: MANUAL DIFF NO %; MEAN CORPUSCULAR VOLUME 87.2 fL (80-100)
[2016-07-26 05:03] LABS: ALBUMIN 2.3 G/DL (3.5-5.0); CALCIUM, SERUM 7.7 MG/DL (8.5-10.4); CHLORIDE, SERUM 98 MMOL/L (96-112); CO2 (CARBON DIOXIDE) 27 MMOL/L (24-34); CREATININE 1.46 MG/DL (0.55-1.02); GFR AFRICAN AMERICAN 39 ML/MIN (>=60); GFR NON AFRICAN AMERICAN 34 ML/MIN (>=60); GLUCOSE, SERUM 182 MG/DL (60-99); POTASSIUM, SERUM 3.8 MMOL/L (3.5-5.3); SODIUM, SERUM 137 MMOL/L (135-148)
[2016-07-26 05:04] LABS: BUN (BLOOD UREA NITROGEN) 25 MG/DL (6-23)
[2016-07-26 09:19] LABS: ASCORBIC ACID (UR NOT ORDER) NEG (NEG); BILIRUBIN, URINE NEGATIVE (NEG); KETONE, URINE NEGATIVE (NEG); LEUKOCYTE ESTERASE(NOT OR NEG (NEG); WBC (NOT ORDERED) (RFLEX) 1 (0-5)
[2016-07-27 04:50] LABS: BASOPHILS 0.1 %; BASOPHILS ABSOLUTE 0.01 10/3/uL (0.0-0.16); EOSINOPHILS 2.9 %; EOSINOPHILS ABSOLUTE 0.36 10/3/uL (0.0-0.53); HEMATOCRIT 28.7 % (36.0-48.0); HEMOGLOBIN 8.5 g/dL (12.0-16.0); IMMATURE GRANULOCYTES 0.3 %; IMMATURE GRANULOCYTES ABSOLUTE 0.04 10/3/uL (0.0-0.11); LYMPHOCYTES 6.4 %; LYMPHOCYTES ABSOLUTE 0.79 10/3/uL (0.67-4.30); MEAN CORPUS HGB CONC 29.6 g/dL (32.0-36.0); MEAN CORPUSCULAR HEMOGLOB 25.1 pg (26.0-34.0); MEAN CORPUSCULAR VOLUME 84.9 fL (80-100); MEAN PLATELET VOLUME 12.2 fL (9.2-13.0); MONOCYTES 5.8 %; MONOCYTES ABSOLUTE 0.71 10/3/uL (0.21-1.20); NEUTROPHILS 84.5 %; PLATELET COUNT 165 10/3/uL (150-400); RBC DISTRIBUTION WIDTH 16.7 % (12.0-16.0); RED CELL COUNT 3.38 10/6/uL (4.0-5.6); WHITE BLOOD CELLS 12.3 10/3/uL (4.5-10.5)
[2016-07-27 04:52] LABS: MANUAL DIFF NO %
[2016-07-27 05:18] LABS: ALBUMIN 2.6 G/DL (3.5-5.0); BUN (BLOOD UREA NITROGEN) 25 MG/DL (6-23); CALCIUM, SERUM 7.9 MG/DL (8.5-10.4); CHLORIDE, SERUM 98 MMOL/L (96-112); CO2 (CARBON DIOXIDE) 30 MMOL/L (24-34); CREATININE 1.54 MG/DL (0.55-1.02); GFR AFRICAN AMERICAN 37 ML/MIN (>=60); GFR NON AFRICAN AMERICAN 32 ML/MIN (>=60); PHOSPHORUS, SERUM 2.6 MG/DL (2.5-4.5); SODIUM, SERUM 139 MMOL/L (135-148)
[2016-07-27 05:22] LABS: GLUCOSE, SERUM 229 MG/DL (60-99)
[2016-07-27 15:08] LABS: POTASSIUM, SERUM 3.8 MMOL/L (3.5-5.3)
[2016-07-27 17:38] LABS: FREE T4 0.9 NG/DL (0.76-1.46)
[2016-07-28 03:19] LABS: ALLENS TEST Pos; BE (BASE EXCESS) 1.3 MEQ/L (0 +/- 2.5); CARBOXYHEMOGLOBIN 0.7 % (0-3); HCO3 (ACTUAL BICARBONATE) 25.5 MEQ/L (23-27); HEMOBLOGIN CONTENT 9.3 G/DL (12-16); INSTRUMENT SERIAL # 8083; METHEMOGLOBIN 0.1 % (0-3); MODE CMV; OPERATOR ID 17370; PCO2 (CO2 TENSION) 39 MMHG (35-45); PO2 (O2 TENSION) 124 MMHG (79-93); SAMPLE Arterial; TIDAL VOLUME 450 ML; pH 7.44 (7.37-7.43)
[2016-07-28 05:31] LABS: HEMATOCRIT 27.7 % (36.0-48.0); HEMOGLOBIN 7.9 g/dL (12.0-16.0); MEAN CORPUS HGB CONC 28.5 g/dL (32.0-36.0); MEAN CORPUSCULAR HEMOGLOB 25.3 pg (26.0-34.0); PLATELET COUNT 137 10/3/uL (150-400); RED CELL COUNT 3.12 10/6/uL (4.0-5.6); WHITE BLOOD CELLS 15.9 10/3/uL (4.5-10.5)
[2016-07-28 05:33] LABS: MANUAL DIFF YES %; MEAN CORPUSCULAR VOLUME 88.8 fL (80-100)
[2016-07-28 05:59] LABS: A/G RATIO 0.6 (0.7-1.9); ALBUMIN 2.3 G/DL (3.5-5.0); BUN (BLOOD UREA NITROGEN) 28 MG/DL (6-23); CALCIUM, SERUM 7.9 MG/DL (8.5-10.4); CHLORIDE, SERUM 99 MMOL/L (96-112); CREATININE 1.79 MG/DL (0.55-1.02); GFR AFRICAN AMERICAN 30 ML/MIN (>=60); GFR NON AFRICAN AMERICAN 26 ML/MIN (>=60); GLOBULIN 4.1 G/DL (2.5-4.1); GLUCOSE, SERUM 229 MG/DL (60-99); PHOSPHORUS, SERUM 2.1 MG/DL (2.5-4.5); POTASSIUM, SERUM 3.7 MMOL/L (3.5-5.3); SGOT(AST) 17 U/L (5-40); SGPT(ALT) 17 U/L (5-65); SODIUM, SERUM 134 MMOL/L (135-148); TOTAL PROTEIN 6.4 G/DL (6.0-8.5)
[2016-07-28 06:15] LABS: ALKALINE PHOSPHATASE 68 U/L (45-117); CO2 (CARBON DIOXIDE) 24 MMOL/L (24-34)
[2016-07-28 06:39] LABS: ANISOCYTOSIS 1+ (5-10/OIF) (0-5/OIF); BAND NEUTROPHILS 2 %; ELLIPTOCYTES 1+ (3-10/OIF) (0-2/OIF); EOSINOPHILS 2 %; EOSINOPHILS ABSOLUTE (CALC) 0.32 10/3/uL (0.0-0.53); LYMPHOCYTES 16 %; LYMPHOCYTES ABSOLUTE (CALC) 2.54 10/3/uL (0.67-4.30); NEUTROPHILS ABSOLUTE (CALC) 13.04 10/3/uL (2.02-8.40); PLATELET ESTIMATE SLT DEC (ADEQUATE); SEGMENTED NEUTROPHIL (0) 80 %; TOTAL NUCLEATED CELLS 100
== END 2016-07-28 22:30 | disposition expired | DRG 207 ==
LOC: ER 06:08 → MIC 07:02
PROVIDERS: Family Medicine; Internal Medicine Critical Care Medicine; Internal Medicine Pulmonary Disease; Specialist
DX: J96.01 Acute respiratory failure with hypoxia (principal); J69.0 Pneumonitis due to inhalation of food and vomit; G93.40 Encephalopathy, unspecified; E87.2 Acidosis; E46 Unspecified protein-calorie malnutrition; N39.0 Urinary tract infection, site not specified; J98.11 Atelectasis; J96.02 Acute respiratory failure with hypercapnia; E83.42 Hypomagnesemia; J44.9 Chronic obstructive pulmonary disease, unspecified; F03.90 Unspecified dementia, unspecified severity, without behavioral disturbance, psychotic disturbance, mood disturbance, and anxiety; I25.10 Atherosclerotic heart disease of native coronary artery without angina pectoris; G89.4 Chronic pain syndrome; K21.9 Gastro-esophageal reflux disease without esophagitis; N18.3 Chronic kidney disease, stage 3 (moderate); E78.00 Pure hypercholesterolemia, unspecified; E03.9 Hypothyroidism, unspecified; I12.9 Hypertensive chronic kidney disease with stage 1 through stage 4 chronic kidney disease, or unspecified chronic kidney disease; M19.90 Unspecified osteoarthritis, unspecified site; E78.5 Hyperlipidemia, unspecified; G47.33 Obstructive sleep apnea (adult) (pediatric); Z87.891 Personal history of nicotine dependence; Z79.899 Other long term (current) drug therapy; Z88.5 Allergy status to narcotic agent; Z88.8 Allergy status to other drugs, medicaments and biological substances; Z88.1 Allergy status to other antibiotic agents; Z86.718 Personal history of other venous thrombosis and embolism; Z82.49 Family history of ischemic heart disease and other diseases of the circulatory system; Z83.3 Family history of diabetes mellitus; E87.6 Hypokalemia; D63.1 Anemia in chronic kidney disease; Z66 Do not resuscitate; Z51.5 Encounter for palliative care
CPT/HCPCS: 31720; 36569; 36600; 71010; 71250; 74000; 74176; 80048; 80053; 80069; 80305; 80307; 81001; 82330; 82533; 82803; 82805; 82947; 82962; 83605; 83690; 83735; 83880; 84100; 84132; 84295; 84439; 84443; 84484; 85014; 85025; 85610; 85730; 87040; 87070; 87086; 87102; 87205; 87493; 87493-59; 87641; 89051; 93005; 94002; 94003; 94640; 94660; 94667; 94668; 96523; 99291; A9270-GY; C1725; C1751; C1894; C8929; C9113; G0463; J0282; J0692; J1120; J1170; J2920; J3370; P9045; P9047; Q9957